=== PATIENT | male | born 1980 | race Caucasian/White ===

== ENCOUNTER 2021-12-04 08:51 | Emergency (ER) | payer OTHER ==
[2021-12-04 09:10] VITALS: BP 126/83; PULSE 86; TEMP 97.8; BMI 29.9
[2021-12-04] MEDS ORDERED: IBUPROFEN 600 MG TABLET (FP) PO ONE ×2 (10:27→10:36)
[2021-12-05 20:07] LABS: SARS-CoV-2 NAA Not Detected (Not Detected)
== END 2021-12-04 10:51 | disposition home or self-care (01) ==
LOC: JER 08:51
DX: R05.1 Acute cough (principal)
CPT/HCPCS: 87804; 99283-25; C9803-CS; U0003; U0005